=== PATIENT | male | born 1950 | race Caucasian/White ===

== ENCOUNTER 2019-01-22 19:26 | Emergency (ER) | payer OTHER ==
[~2019-01-22] VITALS: Ht 182.9 cm; Wt 87.1 kg
[~2019-01-22 19:26] MED LIST: ALBIPROI INH; ALBU3IS INH; ASCO500 PO; Aspirin EC81 MG; CEPH500 PO; CHOL10002 PO; CIPR500 PO; COMBIVENT RESPIM4 GM INH; CRUTCH4 XX; Colace100 MG PO; FLONASE ALLERG9.9 ML; FLUSAL5005 IH; GABA300 PO; HYDACE25S PR; HYDACE5 PO; IPRAOI INH; Imitrex100 MG PO; LEVO750 PO; LORA.5 PO; METR500 PO; MINO100 PO; MIRT15 PO; Miralax17 GM PO; Multiple Vitam1 EAC1 PO; OMEP20ER PO; OMEP40CA12 PO; OXYACE5T PO; OXYC5 PO; PROM25 PO; RANITIDINE; SUCR1 PO; VENL37.5ER PO; VITAMINS; Viagra100 MG PO; Voltaren100 GM TOP; [UNRECOGNIZED DRUG - REMARK]; [UNRECOGNIZED DRUG - REMARK]
[2019-01-22] MEDS ORDERED: ERYT1OIN LEFTEYE (20:48)
== END 2019-01-22 20:58 | disposition home or self-care (01) ==
LOC: ER 19:26
DX: T15.02XA Foreign body in cornea, left eye, initial encounter (principal); W22.8XXA Striking against or struck by other objects, initial encounter; Z79.899 Other long term (current) drug therapy; J44.9 Chronic obstructive pulmonary disease, unspecified; Z87.891 Personal history of nicotine dependence
CPT/HCPCS: 65222; 99283-25

== ENCOUNTER 2019-05-06 13:28 | Day surgery (SDC) | payer OTHER ==
[~2019-05-06] VITALS: Ht 182.9 cm; Wt 77.7 kg
[~2019-05-06 13:28] MED LIST changes: +ERYT1OIN LEFTEYE; +HYDPAM25
--- NOTE | 2019-05-06 14:45 | NUR ---
05/06/19 1445 Valeria Guerra S PT. WITH INSPIRATORY & EXPIRATORY SCATTERED WHEEZES THAT CLEARED WITH COUGH. PT. VERBALIZES HE DOESN'T USE ANY O2 NOW.
== END 2019-05-06 16:52 | disposition home or self-care (01) ==
LOC: ORSCSDS 13:28
PROVIDERS: Internal Medicine Gastroenterology
PROC: 0DBN8ZX Excision of Sigmoid Colon, Via Natural or Artificial Opening Endoscopic, Diagnostic (ICD-10-PCS; principal; 2019-05-06 14:45)
PROC: 0DBK8ZX Excision of Ascending Colon, Via Natural or Artificial Opening Endoscopic, Diagnostic (ICD-10-PCS; principal; 2019-05-06 14:45)
PROC: 0DJ08ZZ Inspection of Upper Intestinal Tract, Via Natural or Artificial Opening Endoscopic (ICD-10-PCS; principal; 2019-05-06 14:45)
PROC: 0DBH8ZX Excision of Cecum, Via Natural or Artificial Opening Endoscopic, Diagnostic (ICD-10-PCS; principal; 2019-05-06 14:45)
PROC: 0DBL8ZX Excision of Transverse Colon, Via Natural or Artificial Opening Endoscopic, Diagnostic (ICD-10-PCS; principal; 2019-05-06 14:45)
DX: Z12.11 Encounter for screening for malignant neoplasm of colon (principal); Z86.010 Personal history of colon polyps; I85.00 Esophageal varices without bleeding; K74.60 Unspecified cirrhosis of liver; B19.20 Unspecified viral hepatitis C without hepatic coma; D12.2 Benign neoplasm of ascending colon; D12.0 Benign neoplasm of cecum; D12.3 Benign neoplasm of transverse colon; K63.5 Polyp of colon; K57.30 Diverticulosis of large intestine without perforation or abscess without bleeding; K64.8 Other hemorrhoids; K64.4 Residual hemorrhoidal skin tags; J44.9 Chronic obstructive pulmonary disease, unspecified; F17.210 Nicotine dependence, cigarettes, uncomplicated; Z79.899 Other long term (current) drug therapy; Z99.81 Dependence on supplemental oxygen
CPT/HCPCS: 88305; J2250; J2405; J2704; J7120

== ENCOUNTER 2019-06-01 16:44 | Emergency (ER) | payer OTHER ==
[~2019-06-01] VITALS: Ht 182.9 cm; Wt 78.0 kg
[2019-06-01 17:38] LABS: BASOPHILS ABSOLUTE AUTO 0.07 K/mm3 (0.00-0.23); BASOPHILS PERCENT AUTO 1 % (0-2); EOSINOPHILS PERCENT AUTO 2 % (0-6); Hematocrit 37.6 % (37.0-53.0); Hemoglobin 12.2 g/dL (13.5-17.5); IMMATURE GRAN ABSOLUTE AUTO 0.05 K/mm3 (0.00-0.10); IMMATURE GRAN PERCENT AUTO 0 % (0-1); LYMPHOCYTES ABSOLUTE AUTO 1.08 K/mm3 (0.84-5.20); LYMPHOCYTES PERCENT AUTO 9 % (21-46); MONOCYTES ABSOLUTE AUTO 0.95 K/mm3 (0.16-1.47); MONOCYTES PERCENT AUTO 8 % (4-13); Mean Corpuscular HGB 28.3 pg (26.0-34.0); Mean Corpuscular HGB Conc 32.4 g/dL (31.5-36.5); Mean Corpuscular Volume 87 fL (80-100); NEUTROPHILS ABSOLUTE AUTO 9.75 K/mm3 (1.96-9.15); NEUTROPHILS PERCENT AUTO 81 % (41-73); Platelet Count 170 K/mm3 (150-400); RDW Coefficient Variation 15.9 % (11.7-14.2); RDW Standard Deviation 51.5 fL (35.1-46.3); Red Blood Cell Count 4.31 M/mm3 (4.30-5.90)
[2019-06-01 18:00] LABS: Alanine Aminotransfer (ALT/SGP 22 U/L (12-78); Albumin, Blood 3.9 g/dL (3.4-5.0); Albumin/Globulin Ratio 0.9 (0.8-1.8); Alk Phos 95 U/L (50-136); Anion Gap 5 mmol/L (6-16); Aspartate Aminotrans (AST/SGOT 22 U/L (12-37); Bilirubin, Total 0.6 mg/dL (0.1-1.0); Blood Urea Nitrogen 7 mg/dL (8-24); Bun/Creatinine Ratio 10.5 (12.0-20.0); CO2, Blood 27 mmol/L (21-32); Calcium, Blood 8.7 mg/dL (8.5-10.1); Chloride, Blood 94 mmol/L (98-108); Creatinine, Blood 0.67 mg/dL (0.60-1.20); Globulin, Blood 4.3 g/dL (2.2-4.0); Glomerular Filtration Rate >60 (60-); Glucose, Blood 114 mg/dL (70-99); Potassium, Blood 3.6 mmol/L (3.5-5.5); Sodium, Blood 126 mmol/L (136-145); Total Protein, Blood 8.2 g/dL (6.4-8.2); Troponin I <0.015 ng/mL (0.000-0.040)
[2019-06-01] MEDS ORDERED: VARE1 PO (19:09)
[2019-06-01] MEDS ORDERED: Penicillin250 MG/5 M PO (19:29)
== END 2019-06-01 20:01 | disposition home or self-care (01) ==
LOC: ER 16:44
PROVIDERS: Emergency Medicine
DX: J02.9 Acute pharyngitis, unspecified (principal); E87.1 Hypo-osmolality and hyponatremia; J44.9 Chronic obstructive pulmonary disease, unspecified; Z87.891 Personal history of nicotine dependence; Z79.899 Other long term (current) drug therapy; Z79.51 Long term (current) use of inhaled steroids
CPT/HCPCS: 36415; 71046; 80053; 84484; 85025; 93005; 93010; 99284-25

== ENCOUNTER 2019-10-04 07:53 | Day surgery (SDC) | payer OTHER ==
[~2019-10-04] VITALS: Ht 172.7 cm; Wt 78.6 kg
[~2019-10-04 07:53] MED LIST changes: +Effexor Xr37.5 MG PO; +IPRATROPIUM NEB; +Penicillin250 MG/5 M PO; +SUMA25 PO; +THERA1 EACH PO; +TIZA4 PO; +VARE1 PO; +VITAMIN D3 PO
--- NOTE | 2019-10-04 09:44 | NUR ---
History, Chart, Medications and Allergies reviewed before start of procedure. Pre-Op teaching done. Pt verbalizes understanding. Patient confirms NPO status and agrees with scheduled surgery. Patient States Post-Procedure ride home has been arranged. Patient reports completing Chlorhexadine shower X2 prior to admission to hospital. Lungs clear T/O to Auscultation. Surgical site prepped with 2% Chlorhexidine cloth wipe. PATIENT GLASSES IN BELONGING BAG.
--- NOTE | 2019-10-04 11:57 | NUR ---
Patient up to Ambulate independently. Gait steady. TAUGHT ABDOMINAL BINDER PLACEMENT WITH . Discharge instructions reviewed with patient. Patient verbalizes understanding. Copy given to patient to take home. Dressing to procedure site clean, dry, intact with no visible drainage, swelling, erythema or bruising noted. Patient States Post-Procedure ride home has been arranged. Discharged via wheelchair to private car for ride home. ALL BELONINGS RETURNED TO PATIENT.
--- NOTE | 2019-10-05 13:46 | NUR ---
10/05/19 1346 Melisa Ureña VERIFICATIONS: EDIT CHART.
== END 2019-10-04 22:41 | disposition home or self-care (01) ==
LOC: ORSCMMR 07:53 → ORD 09:30 → ORSCMMR 09:30
PROVIDERS: Surgery
PROC: 0WUF0JZ Supplement Abdominal Wall with Synthetic Substitute, Open Approach (ICD-10-PCS; principal; 2019-10-04 09:30)
DX: K43.2 Incisional hernia without obstruction or gangrene (principal); J44.9 Chronic obstructive pulmonary disease, unspecified; F17.210 Nicotine dependence, cigarettes, uncomplicated; Z79.899 Other long term (current) drug therapy
CPT/HCPCS: C1781; J1100; J1885; J2250; J2405; J2704; J3010; J7120

== ENCOUNTER → 2020-07-06 | Outpatient (CLI) | payer OTHER ==
[2020-07-06 16:36] LABS: BASOPHILS ABSOLUTE AUTO 0.06 K/mm3 (0.00-0.23); BASOPHILS PERCENT AUTO 1 % (0-2); EOSINOPHILS ABSOLUTE AUTO 0.11 K/mm3 (0.00-0.68); EOSINOPHILS PERCENT AUTO 2 % (0-6); Hematocrit 43.6 % (37.0-53.0); Hemoglobin 15.4 g/dL (13.5-17.5); IMMATURE GRAN ABSOLUTE AUTO 0.07 K/mm3 (0.00-0.10); IMMATURE GRAN PERCENT AUTO 1 % (0-1); LYMPHOCYTES ABSOLUTE AUTO 1.28 K/mm3 (0.84-5.20); LYMPHOCYTES PERCENT AUTO 19 % (21-46); MONOCYTES PERCENT AUTO 12 % (4-13); Mean Corpuscular HGB 32.6 pg (26.0-34.0); Mean Corpuscular HGB Conc 35.3 g/dL (31.5-36.5); Mean Corpuscular Volume 92 fL (80-100); NEUTROPHILS ABSOLUTE AUTO 4.49 K/mm3 (1.96-9.15); NEUTROPHILS PERCENT AUTO 66 % (41-73); RDW Coefficient Variation 14.1 % (11.7-14.2); Red Blood Cell Count 4.72 M/mm3 (4.30-5.90); White Blood Cell Count 6.81 K/mm3 (4.00-11.30)
[2020-07-06 16:40] LABS: Mean Platelet Volume 10.4 fL (9.1-12.4)
[2020-07-06 16:46] LABS: Alanine Aminotransfer (ALT/SGP 32 U/L (12-78); Albumin/Globulin Ratio 0.9 (0.8-1.8); Alk Phos 94 U/L (40-126); Anion Gap 15 mmol/L (6-16); Aspartate Aminotrans (AST/SGOT 22 U/L (12-37); Bilirubin, Total 0.6 mg/dL (0.1-1.0); Blood Urea Nitrogen 9 mg/dL (8-24); Bun/Creatinine Ratio 11.7 (12.0-20.0); CO2, Blood 19 mmol/L (21-32); Calcium, Blood 8.9 mg/dL (8.5-10.1); Chloride, Blood 94 mmol/L (98-108); Creatinine, Blood 0.77 mg/dL (0.60-1.20); Globulin, Blood 4.6 g/dL (2.2-4.0); Glomerular Filtration Rate >60 (60-); Glucose, Blood 94 mg/dL (70-99); Potassium, Blood 3.8 mmol/L (3.5-5.5); Sodium, Blood 128 mmol/L (136-145); Total Protein, Blood 8.6 g/dL (6.4-8.2)
[2020-07-06 17:07] LABS: Platelet Count 168 K/mm3 (150-400)
== END | disposition home or self-care (01) ==
LOC: LAB EV 16:07 → LAB SHORT 16:07
PROVIDERS: Chiropractor
DX: M25.531 Pain in right wrist (principal); M79.641 Pain in right hand
CPT/HCPCS: 80053; 84550; 85025; 85651; 86140

== ENCOUNTER 2022-01-25 08:03 | Day surgery (SDC) | payer OTHER ==
[~2022-01-25] VITALS: Ht 182.9 cm; Wt 75.2 kg
== END 2022-01-25 10:05 | disposition home or self-care (01) ==
LOC: ORSCSDS 08:03
PROVIDERS: Internal Medicine Gastroenterology
PROC: 0DB68ZX Excision of Stomach, Via Natural or Artificial Opening Endoscopic, Diagnostic (ICD-10-PCS; principal; 2022-01-25 09:45)
DX: D51.0 Vitamin B12 deficiency anemia due to intrinsic factor deficiency (principal); K74.60 Unspecified cirrhosis of liver; K31.9 Disease of stomach and duodenum, unspecified; J44.9 Chronic obstructive pulmonary disease, unspecified; J45.909 Unspecified asthma, uncomplicated; K44.9 Diaphragmatic hernia without obstruction or gangrene; I10 Essential (primary) hypertension; M06.9 Rheumatoid arthritis, unspecified; E66.9 Obesity, unspecified; Z68.32 Body mass index [BMI] 32.0-32.9, adult; Z79.899 Other long term (current) drug therapy
CPT/HCPCS: 88305; 88341; 88342; A9270; J2704; J7120

== ENCOUNTER 2022-03-26 05:12 | Day surgery (SDC) | payer OTHER ==
[~2022-03-26 05:12] MED LIST changes: +FURO20 PO; +LOSA25 PO; +POTA8 PO; +SODCHL1 PO
== END 2022-03-26 09:23 | disposition home or self-care (01) ==
LOC: ATC 05:12
DX: E27.40 Unspecified adrenocortical insufficiency (principal); I12.9 Hypertensive chronic kidney disease with stage 1 through stage 4 chronic kidney disease, or unspecified chronic kidney disease; E11.22 Type 2 diabetes mellitus with diabetic chronic kidney disease; N18.2 Chronic kidney disease, stage 2 (mild); D63.1 Anemia in chronic kidney disease; N25.81 Secondary hyperparathyroidism of renal origin; E11.42 Type 2 diabetes mellitus with diabetic polyneuropathy; K70.30 Alcoholic cirrhosis of liver without ascites; J96.11 Chronic respiratory failure with hypoxia; I70.0 Atherosclerosis of aorta; G43.909 Migraine, unspecified, not intractable, without status migrainosus; K21.9 Gastro-esophageal reflux disease without esophagitis; E87.1 Hypo-osmolality and hyponatremia
CPT/HCPCS: 80400; 82533; J0834

== ENCOUNTER 2022-05-13 06:15 | Emergency (ER) | payer OTHER ==
[~2022-05-13] VITALS: Ht 182.9 cm; Wt 80.7 kg
[2022-05-13] MEDS ORDERED: IBUP800 PO (09:11)
[2022-05-13] MEDS ORDERED: Robaxin750 MG PO (09:11)
[2022-05-13] MEDS ORDERED: LIDO700A20 TOP (09:11)
[2022-05-13] MEDS ORDERED: GABA300 PO (09:11)
== END 2022-05-13 09:19 | disposition home or self-care (01) ==
LOC: ER 06:15
DX: M54.12 Radiculopathy, cervical region (principal); J44.9 Chronic obstructive pulmonary disease, unspecified; Z88.0 Allergy status to penicillin; Z87.891 Personal history of nicotine dependence; Z79.899 Other long term (current) drug therapy
CPT/HCPCS: A9270; J1885

== ENCOUNTER 2022-07-18 11:18 | Day surgery (SDC) | payer OTHER ==
[~2022-07-18] VITALS: Ht 182.9 cm; Wt 75.1 kg
[~2022-07-18 11:18] MED LIST changes: +IBUP800 PO; +LIDO700A20 TOP; +Robaxin750 MG PO
[2022-07-18] MEDS ORDERED: COMBIVENT RESPIM4 G1 (12:07)
[2022-07-18] MEDS ORDERED: IBUP400 (12:07)
== END 2022-07-18 14:00 | disposition home or self-care (01) ==
LOC: ORSCSDS 11:18
PROVIDERS: Internal Medicine Gastroenterology
PROC: 0DBP8ZX Excision of Rectum, Via Natural or Artificial Opening Endoscopic, Diagnostic (ICD-10-PCS; principal; 2022-07-18 12:45)
PROC: 0DBL8ZX Excision of Transverse Colon, Via Natural or Artificial Opening Endoscopic, Diagnostic (ICD-10-PCS; principal; 2022-07-18 12:45)
DX: Z86.010 Personal history of colon polyps (principal); D12.2 Benign neoplasm of ascending colon; D12.3 Benign neoplasm of transverse colon; D12.8 Benign neoplasm of rectum; K64.4 Residual hemorrhoidal skin tags; K57.30 Diverticulosis of large intestine without perforation or abscess without bleeding; Z12.11 Encounter for screening for malignant neoplasm of colon; K74.69 Other cirrhosis of liver; I85.10 Secondary esophageal varices without bleeding; K76.6 Portal hypertension; K31.89 Other diseases of stomach and duodenum; J44.9 Chronic obstructive pulmonary disease, unspecified; Z86.19 Personal history of other infectious and parasitic diseases; Z79.899 Other long term (current) drug therapy; F17.210 Nicotine dependence, cigarettes, uncomplicated
CPT/HCPCS: 88305; J0330; J0461; J2405; J2704; J7120

== ENCOUNTER 2022-11-19 12:49 | Emergency (ER) | payer OTHER ==
[~2022-11-19] VITALS: Ht 182.9 cm; Wt 77.6 kg
[~2022-11-19 12:49] MED LIST changes: +COMBIVENT RESPIM4 G1; +IBUP400
[2022-11-19 13:29] LABS: BASOPHILS ABSOLUTE AUTO 0.04 K/mm3 (0.00-0.23); BASOPHILS PERCENT AUTO 1 % (0-2); EOSINOPHILS ABSOLUTE AUTO 0.13 K/mm3 (0.00-0.68); EOSINOPHILS PERCENT AUTO 2 % (0-6); Hematocrit 46.5 % (37.0-53.0); Hemoglobin 16.9 g/dL (13.5-17.5); IMMATURE GRAN ABSOLUTE AUTO 0.04 K/mm3 (0.00-0.10); IMMATURE GRAN PERCENT AUTO 1 % (0-1); LYMPHOCYTES ABSOLUTE AUTO 1.85 K/mm3 (0.84-5.20); LYMPHOCYTES PERCENT AUTO 22 % (21-46); MONOCYTES ABSOLUTE AUTO 0.98 K/mm3 (0.16-1.47); MONOCYTES PERCENT AUTO 12 % (4-13); Mean Corpuscular HGB Conc 36.3 g/dL (31.5-36.5); Mean Corpuscular Volume 94 fL (80-100); Mean Platelet Volume 9.5 fL (9.1-12.4); NEUTROPHILS ABSOLUTE AUTO 5.39 K/mm3 (1.96-9.15); NEUTROPHILS PERCENT AUTO 64 % (41-73); Platelet Count 168 K/mm3 (150-400); RDW Coefficient Variation 12.5 % (11.7-14.2); Red Blood Cell Count 4.97 M/mm3 (4.30-5.90); White Blood Cell Count 8.43 K/mm3 (4.00-11.30)
[2022-11-19 13:54] LABS: C-REACTIVE PROTEIN, EXT RANGE 4.06 mg/dL (0.000-0.300)
[2022-11-19 13:55] LABS: Albumin/Globulin Ratio 0.9 (0.8-1.8); Bilirubin, Total 0.6 mg/dL (0.1-1.0); Bun/Creatinine Ratio 13.5 (12.0-20.0); Calcium, Blood 9.5 mg/dL (8.5-10.1); Creatinine, Blood 0.59 mg/dL (0.60-1.20); Globulin, Blood 4.7 g/dL (2.2-4.0); Total Protein, Blood 8.7 g/dL (6.4-8.2)
[2022-11-19] MEDS ORDERED: CEPH500 PO (15:45)
== END 2022-11-19 16:07 | disposition home or self-care (01) ==
LOC: ER 12:49
PROVIDERS: Physician Assistant
DX: L03.113 Cellulitis of right upper limb (principal); J44.9 Chronic obstructive pulmonary disease, unspecified; Z79.899 Other long term (current) drug therapy; Z88.0 Allergy status to penicillin; Z87.891 Personal history of nicotine dependence
CPT/HCPCS: 36415; 73110; 80053; 83605; 85025; 85651; 86140; 96374; 99283-25; A9270; J1885; J7030

== ENCOUNTER 2023-09-17 09:52 | Emergency (ER) | payer OTHER ==
[~2023-09-17] VITALS: Ht 182.9 cm; Wt 80.3 kg
[2023-09-17 10:24] VITALS: BP 138/98
[2023-09-17] MEDS ORDERED: Norco 5-325 Ta1 EACH PO (12:13)
== END 2023-09-17 12:28 | disposition home or self-care (01) ==
LOC: ER 09:52
DX: M54.50 Low back pain, unspecified (principal); G89.29 Other chronic pain; J44.9 Chronic obstructive pulmonary disease, unspecified; Z91.81 History of falling; Z87.891 Personal history of nicotine dependence; Z79.51 Long term (current) use of inhaled steroids; Z79.899 Other long term (current) drug therapy
CPT/HCPCS: 72100; 99283-25

== ENCOUNTER 2024-03-21 16:53 | Emergency (ER) | payer OTHER ==
[~2024-03-21] VITALS: Ht 182.9 cm; Wt 72.6 kg
[~2024-03-21 16:53] MED LIST changes: +Norco 5-325 Ta1 EACH PO
[2024-03-21 17:00] VITALS: BP 155/95
[2024-03-21] MEDS ORDERED: Ketorolac Tromethamine 10 MG Tab PO ONE (18:10)
== END 2024-03-21 18:31 | disposition home or self-care (01) ==
LOC: ER 16:53
DX: M54.12 Radiculopathy, cervical region (principal); G89.29 Other chronic pain; K21.9 Gastro-esophageal reflux disease without esophagitis; E11.9 Type 2 diabetes mellitus without complications; J44.89 Other specified chronic obstructive pulmonary disease; M19.90 Unspecified osteoarthritis, unspecified site; F17.210 Nicotine dependence, cigarettes, uncomplicated; Z79.51 Long term (current) use of inhaled steroids; Z79.899 Other long term (current) drug therapy; Z88.0 Allergy status to penicillin
CPT/HCPCS: 99283; A9270

== ENCOUNTER 2024-07-16 02:48 | Observation (INO) | payer MEDICARE ==
[~2024-07-16] VITALS: Ht 182.9 cm; Wt 60.6 kg
[~2024-07-16 02:48] MED LIST changes: +COMBIVENT RESPIM4 G1 INH; +MULVITA PO; -THERA1 EACH PO; -VITAMIN D3 PO; +VITAMIN D31000 UNI1 PO
[2024-07-16 03:20] LABS: BASOPHILS ABSOLUTE AUTO 0.03 K/mm3 (0.00-0.23); BASOPHILS PERCENT AUTO 0 % (0-2); EOSINOPHILS ABSOLUTE AUTO 0.01 K/mm3 (0.00-0.68); EOSINOPHILS PERCENT AUTO 0 % (0-6); Hematocrit 46.1 % (37.0-53.0); Hemoglobin 16.6 g/dL (13.5-17.5); IMMATURE GRAN ABSOLUTE AUTO 0.04 K/mm3 (0.00-0.10); IMMATURE GRAN PERCENT AUTO 0 % (0-1); LYMPHOCYTES ABSOLUTE AUTO 0.61 K/mm3 (0.84-5.20); LYMPHOCYTES PERCENT AUTO 7 % (21-46); MONOCYTES ABSOLUTE AUTO 0.88 K/mm3 (0.16-1.47); MONOCYTES PERCENT AUTO 10 % (4-13); Mean Corpuscular HGB 32.7 pg (26.0-34.0); Mean Corpuscular Volume 91 fL (80-100); Mean Platelet Volume 10.3 fL (9.1-12.4); NEUTROPHILS ABSOLUTE AUTO 7.38 K/mm3 (1.96-9.15); NEUTROPHILS PERCENT AUTO 83 % (41-73); Platelet Count 171 K/mm3 (150-400); RDW Coefficient Variation 12.2 % (11.7-14.2); RDW Standard Deviation 40.6 fL (35.1-46.3); Red Blood Cell Count 5.08 M/mm3 (4.30-5.90); White Blood Cell Count 8.95 K/mm3 (4.00-11.30)
[2024-07-16] MEDS ORDERED: Diphth,Pertuss(Acell),Tet Vac 0.5 ML VIAL IM ONE (03:55)
[2024-07-16] MEDS ORDERED: NS 1,000 ML IV SCH (03:55)
[2024-07-16] MEDS ORDERED: CefTRIAXone Sodium 1,000 MG in NS 50 ML IV ONE (03:55)
[2024-07-16] MEDS ORDERED: FentaNYL Citrate 50 MCG/ML 2 ML Injection IV PRN ×2 (03:55→07:55)
[2024-07-16] MEDS ORDERED: FLU VACC TS2024-25(6MOS UP)/PF 45 MCG/0.5 ML SYRINGE IM SCH (04:45)
[2024-07-16] MEDS ORDERED: OXYC5 (04:54)
[2024-07-16 04:59] LABS: Albumin, Blood 4.2 g/dL (3.4-5.0); Albumin/Globulin Ratio 0.9 (0.8-1.8); Bilirubin, Total 1.2 mg/dL (0.1-1.0); Bun/Creatinine Ratio 12.6 (12.0-20.0); Calcium, Blood 9.9 mg/dL (8.5-10.1); Creatinine, Blood 0.64 mg/dL (0.60-1.20); Globulin, Blood 4.9 g/dL (2.2-4.0); Potassium, Blood 3.6 mmol/L (3.5-5.5); Total Protein, Blood 9.1 g/dL (6.4-8.2)
[2024-07-16] MEDS ORDERED: OxyCODONE HCL 5 MG TAB PO ONE (05:00)
[2024-07-16] MEDS ORDERED: Azithromycin 500 MG in NS 250 ML IV SCH (06:04)
[2024-07-16 06:13] VITALS: BP 160/115
[2024-07-16 07:48] VITALS: BP 150/94
[2024-07-16] MEDS ORDERED: OxyCODONE HCL 5 MG TAB PO PRN (07:55)
--- NOTE | 2024-07-16 08:00 | NUR ---
ADMISSION NOTE PATIENT ADMITTED DURING NOC SHIFT, PARTIAL ADMISSION DOCUMENTATION COMPLETED BY NOC. A/OX4, ABLE TO MAKE NEEDS KNOWN. PLEASANT AND COOPERATIVE WITH CARE. ADMITTE FOR POSSIBLE CELLUTITIS TO RIGHT WRIST AND HAND WITH PATIENT STATED INJURY TO RIGHT FINGER ABOUT A WEEK AGO. PATIENT STATES HE CLOSED HIS FINGER IN HIS TRAILOR DOOR. PICTURES OBTAINED AND COPY IN PAPER CHART. PATIENT WITH PAIN 8/10 TO RIGHT UPER XTREMITY, WORSENS WITH MOVEMENT OR TOUCH. MEDICATED PER NOV. MEDICTION RECONCILIATION NOT COMPLETED PATIENT STATES HIS WILL BRING IN A COPY OF HIS MEDICATION LATER TODAY. IV ABX RUNNING. VITAL SIGNS STABLE, BLOOD PRESSURE ELEVATED. WILL CONTINUE TO MONITOR.
[2024-07-16] MEDS ORDERED: Losartan Potassium 25 MG Tab PO SCH (09:00)
[2024-07-16] MEDS ORDERED: Lactobacil 2-S.Thermo-Bifido 1 1 Cap PO SCH (09:00)
[2024-07-16] MEDS ORDERED: Vancomycin HCL 1,750 MG in NS 500 ML IV ONE (11:05)
[2024-07-16 11:18] LABS: International Normalized Ratio 1.06; Prothrombin Time Results 11.3 Sec (9.7-11.5)
--- NOTE | 2024-07-16 13:37 | NUR ---
DISHCARGE SUMMARY PATIENT A/OX4 ABLE TO MAKE NEEDS KNOWN. PATIENT AND FAMILY INSTRUCTED ON DISCHARGE ORDERS INCLUDING HAVING PCP APPOINTMENT WITHIN 3 DAYS WITH LAB WORK. ALSO INSTRUCTED TO STOP TAKING LISINIPRIL AND DO NOT KATIE LOSARTAN UNTIL SEEN BY PCP. PATIENT AND FAMILY WIH QUESTIONS REGARDING INSURANCE AT TIME OF DISCHARGE AND CASE MANAGEMENT HAD DISCUSSION WITH THEM. HARD PRESCCRIPTION FOR LAB WORK GIVEN TO FAMILY WITH DISCHARGE PAPERWORK. PATIENT'S DAUGHTER INSTRUCTED ON HOW TO CHANGE DRESSING TO BILATERAL LOWER LEGS AND DRESSING'S WERE CHANGED PRIOR TO DISCHARGE. PIV REMOVED. PATIENT AND FAMILY WITH NO OTHER QUESTIONS. MEDICATIONS FAXED TO [facility] PER DAUGHTER'S REQUEST. HUMZANEWTONMoe ASSISTED TO FAMILY VEHICLE VIA WHEELCHAIR WITH ALL BELINGINGS. NO OTHER CONCERNS AT THIS TIME.
[2024-07-16] MEDS ORDERED: Nicotine 21 MG PATCH TOP SCH (13:38)
[2024-07-16 15:53] VITALS: BP 154/87
--- NOTE | 2024-07-16 19:26 | NUR ---
SHIFT SUMMARY PATIENT A/OX4, INDEPENDENT IN ROOM. PLEASANT AND COOPERATIVE WITH CARE. MRI, CT, AND X RAYS OBTAINED TODAY. ORTHO CONSULTED AND PLACED ENOC BANDAGE TO PATIENT'S RIGHT FORARM/WRIST. CONTINUES WITH IV ANTIBIOTICS. NO NEW OR OTHER CONCERNS SINCE ADMISSION. PATIENT COMPLAINING OF PAIN TO RUE AND CHRONIC BACK PAIN, MEDICATED PER NOV. REPORT GIVEN TO EDUCATIONAL/DEVELOPMENT ASSISTANT RN.
[2024-07-16 19:36] VITALS: BP 119/83
[2024-07-17] MEDS ORDERED: MOME.1TO (00:53)
[2024-07-17] MEDS ORDERED: HYDROXYZINE PAM25 MG PO (00:54)
[2024-07-17] MEDS ORDERED: TRELEGY ELLIPT1 EAC1 INH (00:55)
[2024-07-17] MEDS ORDERED: VARENICLINE TART1 M2 PO (00:56)
[2024-07-17] MEDS ORDERED: OXYC10TA19 PO (00:57)
[2024-07-17 02:15] VITALS: BP 146/97
[2024-07-17] MEDS ORDERED: Vancomycin HCL 1,250 MG in NS 250 ML IV SCH (03:00)
--- NOTE | 2024-07-17 03:29 | NUR ---
ESL TUTOR SUMMARYA BP HIGH NORMAL, OTHERWISE VSS. IV ANTIBIOTICS AND PAIN MEDS ADMINISTERED - SEE MAR FOR DETAILS. SWELLING/DISCOLORATION OF RIGHT FOREARM CONTINUES. VOICED ARM FEELING BETTER. HAS BEEN RESTING QUIETLY AT INTERVALS. CALL LIGHTIN REACH, ABLE TO REPOSITION SELF IN BED WITHOUT ASSIST. UP AD LUCIUS. RAILS UP X 2 AND BED IN LOW POSITOIN FOR SAFETYE. WILL CONT TO MONITOR
[2024-07-17 04:37] LABS: BASOPHILS ABSOLUTE AUTO 0.02 K/mm3 (0.00-0.23); BASOPHILS PERCENT AUTO 0 % (0-2); EOSINOPHILS ABSOLUTE AUTO 0.04 K/mm3 (0.00-0.68); EOSINOPHILS PERCENT AUTO 1 % (0-6); Hematocrit 41.3 % (37.0-53.0); Hemoglobin 14.7 g/dL (13.5-17.5); IMMATURE GRAN ABSOLUTE AUTO 0.03 K/mm3 (0.00-0.10); IMMATURE GRAN PERCENT AUTO 0 % (0-1); LYMPHOCYTES ABSOLUTE AUTO 1.17 K/mm3 (0.84-5.20); LYMPHOCYTES PERCENT AUTO 16 % (21-46); MONOCYTES ABSOLUTE AUTO 0.79 K/mm3 (0.16-1.47); MONOCYTES PERCENT AUTO 11 % (4-13); Mean Corpuscular HGB 32.5 pg (26.0-34.0); Mean Corpuscular HGB Conc 35.6 g/dL (31.5-36.5); Mean Corpuscular Volume 91 fL (80-100); Mean Platelet Volume 9.4 fL (9.1-12.4); NEUTROPHILS ABSOLUTE AUTO 5.16 K/mm3 (1.96-9.15); NEUTROPHILS PERCENT AUTO 72 % (41-73); Platelet Count 154 K/mm3 (150-400); RDW Coefficient Variation 12.4 % (11.7-14.2); RDW Standard Deviation 41.2 fL (35.1-46.3); Red Blood Cell Count 4.53 M/mm3 (4.30-5.90); White Blood Cell Count 7.21 K/mm3 (4.00-11.30)
[2024-07-17 05:02] LABS: Albumin, Blood 3.1 g/dL (3.4-5.0); Albumin/Globulin Ratio 0.7 (0.8-1.8); Bilirubin, Total 0.7 mg/dL (0.1-1.0); Bun/Creatinine Ratio 20.7 (12.0-20.0); Creatinine, Blood 0.58 mg/dL (0.60-1.20); Globulin, Blood 4.4 g/dL (2.2-4.0); Potassium, Blood 3.3 mmol/L (3.5-5.5); Total Protein, Blood 7.5 g/dL (6.4-8.2)
[2024-07-17] MEDS ORDERED: CefTRIAXone Sodium 1,000 MG in NS 100 ML IV SCH (06:00)
[2024-07-17 07:33] VITALS: BP 157/104
[2024-07-17] MEDS ORDERED: Potassium Chloride 20 MEQ TabCR PO ONE (08:00)
[2024-07-17] MEDS ORDERED: Enoxaparin 40 MG/0.4 ML SYR SC SCH (09:00)
[2024-07-17] MEDS ORDERED: Nicotine 21 MG PATCH TOP SCH (09:00)
[2024-07-17] MEDS ORDERED: VISBIOME 112.51 EACH PO (14:29)
[2024-07-17] MEDS ORDERED: CEFD300 PO (14:30)
--- NOTE | 2024-07-17 15:04 | NUR ---
DISCHARGE NOTE PATIENT A/OX4, ABLE TO MAKE NEEDS KNOWN. PLEASANT AND COOPERATIVE WITH CARE. INDEPENDENT IN ROOM. COMPLAINING OF CHRONIC BACK PAIN AND RIGHT FOREARM PAIN THIS MORNING, WHICH IMPROVED SIGNIFICANTLY FROM YESTERDAY PER PATIENT. DISCHARGE PAPERWORK COMPLETED AND DISCUSSED WITH PATIENT, SPOUSE AT BEDSIDE. PATIENT AND SPOUSE AGREEABLE TO TAKE ALL MEICATIONS PRESCRIBED AND SEE PRIMARY CARE PROVIDER WITHIN 1 WEEK WITH LOG BOOK OF BLOOD PRESSURES TO BE TAKEN TO APPOINTMENT. PATIENT AND FAMILY WITH NO QUESTIONS AT TIME OF DISCHARGE, PATIENT AMBULATED TO HIS VEHICLE WITH HIS SPOUSE.
== END 2024-07-17 15:00 | disposition home or self-care (01) ==
LOC: ER 02:48 → MEDS 02:49 → ERHOLD 02:49 → MEDS 06:05
PROVIDERS: Emergency Medicine; ADMIT Internal Medicine
DX: L03.113 Cellulitis of right upper limb (principal); M65.141 Other infective (teno)synovitis, right hand; I25.10 Atherosclerotic heart disease of native coronary artery without angina pectoris; I25.2 Old myocardial infarction; E11.9 Type 2 diabetes mellitus without complications; J44.9 Chronic obstructive pulmonary disease, unspecified; K74.60 Unspecified cirrhosis of liver; I85.10 Secondary esophageal varices without bleeding; R16.1 Splenomegaly, not elsewhere classified; K21.9 Gastro-esophageal reflux disease without esophagitis; M19.91 Primary osteoarthritis, unspecified site; Z88.0 Allergy status to penicillin; Z79.899 Other long term (current) drug therapy; Z79.4 Long term (current) use of insulin
CPT/HCPCS: 36415; 71045; 73110; 73140; 73201; 73223; 76882; 80053; 83605; 83935; 84145; 84300; 84484; 85025; 85610; 85730; 87040; 87070; 87205; 90471; 90715; 93005; 93010; 96365; 96366; 96367; 96375; 96376; 99285-25; A9270; A9579; G0378; J0456; J0696; J3010; J3370; J7030; J7040; J7050; Q9967